=== PATIENT | male | born 1990 | race Caucasian/White ===

== ENCOUNTER 2021-05-04 09:46 | Emergency (ER) | payer MEDICARE, MEDICAID, SELFPAY ==
[2021-05-04] VITALS (8 sets, daily range): BP systolic 90–116; BP diastolic 58–80; PULSE 80–116; RESP 12–20; TEMP 36.6; O2SAT 97–100
--- NOTE | 2021-05-04 10:06 | ECG_ITS ---
Measurements Intervals [place] Rate: 111 P: 62 UT: 153 QRS: 25 QRSD: 102 T: 51 QT: 333 QTc: 453 Interpretive Statements SINUS TACHYCARDIA ABNORMAL RHYTHM ECG NO PREVIOUS ECG AVAILABLE FOR COMPARISON Electronically Signed On 05-04-2021 13:13:05 CDT by Milly Parisi M.D.
[2021-05-04] MEDS: SODIUM CHLORIDE 0.9% IV 1,000 ML 999 ML IV CONT ×2 (10:08→16:08)
--- NOTE | 2021-05-04 10:12 | ED.OVERDOSE ---
HPI - Overdose General Chief Complaint: Overdose Stated Complaint: altered/?under the influence Time Seen by Provider: 05/04/21 09:58 History of Present Illness HPI Narrative: 30-year-old male presents the emergency room via EMS unresponsive. Per EMS, patient was found in the lobby of a hotel unresponsive. EMS established an IV and gave patient 0.4 mg of Narcan, patient was able to wake up and verbalized that he took an unknown amount of Xanax. Related Data Allergies Allergy/AdvReac Type Severity Reaction Status Date / Time Penicillins Allergy Unknown Verified 05/04/21 10:18 Review of Systems Review of Systems: CONSTITUTIONAL: Denies fever, chills, or sweats. EYES: Denies visual changes, redness, or discharge. ENT: Denies rhinorrhea, congestion, sore throat, or otalgia. CARDIOVASCULAR: Denies chest pain, palpitations, or edema. RESPIRATORY: Denies cough or dyspnea. GASTROINTESTINAL: Denies abdominal pain, nausea, vomiting, or diarrhea. GENITOURINARY: Denies dysuria or hematuria. SKIN: Denies rash or itching. MUSCULOSKELETAL: Denies back pain, joint pain, or myalgia. NEUROLOGIC: Denies headache, numbness, dizziness, or weakness. PSYCHIATRIC: Denies anxiety or depression. Exam Narrative: GENERAL: Well-appearing, well-nourished, and in no acute distress. HEAD: Normocephalic, atraumatic. EYES: Pupils are pinpoint. ENT: Nares clear, no rhinorrhea or epistaxis. Mucous membranes moist. NECK: Supple. No adenopathy or masses. No carotid bruits or JVD CHEST: Clear to auscultation. Bradypnea. No wheezes rales or rhonchi HEART: Tachycardic and rhythm. No murmur heard. Normal peripheral pulses. ABDOMEN: Soft, nontender, nondistended, normal active bowel sounds. EXTREMITIES: Normal range of motion. No edema. SKIN: Warm, dry, no rash. NEURO: No focal deficits. Somnolent. PSYCH: Normal mood and affect. Course Vital Signs Vital signs: Vital Signs Temperature 36.6 C 05/04/21 09:50 Pulse Rate 116 H 05/04/21 09:50 Respiratory Rate 16 05/04/21 09:50 Blood Pressure 111/66 05/04/21 09:50 Pulse Oximetry 97 05/04/21 09:50 Temperature 36.6 C 05/04/21 09:50 Pulse Rate 84 05/04/21 16:52 Respiratory Rate 16 05/04/21 16:52 Blood Pressure 107/65 05/04/21 16:52 Pulse Oximetry 98 05/04/21 16:52 MDM - Overdose MDM Narrative Medical decision making narrative: 30-year-old male presented to the emergency room via EMS he was found unresponsive in a hotel lobby. Patient was given 0.4 mg of Narcan in route and was able to wake up slightly. UDS showed a positive benzodiazepines and THC. Patient was difficult to arouse, however he remained hemodynamically stable. At approximately 1700, patient was arousable and was able to 6 tell me that he took 2 mg of Ativan and smoked a bunch of pot. Patient is requesting to go home. Patient is alert and oriented x3 patient is ambulatory in the emergency room answering questions appropriately. Patient states he has family on the way to provide him transportation. Medical Records Attestation: I reviewed the patient's medical records. Lab Data Attestation: I reviewed the patient's lab results. Result diagrams: 05/04/21 10:08 05/04/21 10:08 Labs: Lab Results 05/04/21 05/04/21 05/04/21 Range/Units 10:08 10:08 10:08 WBC 5.8 (4.5-10.0) K/mm3 RBC 4.41 L (4.6-6.20) M/mm3 Hgb 12.5 L (14.0-18.0) g/dL Hct 38.3 L (42.0-52.0) % MCV 86.8 (80-100) fl MCH 28.3 (26-34) pg MCHC 32.6 (32-36) g/dl RDW 13.8 (11.5-14.5) % Plt Count 252 (150-375) k/mm3 MPV 10.4 (7.4-10.4) fl Immature Gran % (Auto) 0.3 (0-0.5) % Neut % (Auto) 48.6 (45.5-73.1) % Lymph % (Auto) 36.7 (18.3-44.2) % [place] % (Auto) 10.5 H (2.6-8.5) % Eos % (Auto) 3.4 (0-4.4) % Baso % (Auto) 0.5 (0.2-1.2) % Lymph # (Auto) 2.14 (0.9-3.2) K/mm3 [place] # (Auto) 0.6 (0.1-0.6) K/mm3 Eos # (Auto) 0.2 (0-0.3) K/m
[2021-05-04 10:17] LABS: Basophils Percent Auto 0.5 % (0.2-1.2); Eosinophils Absolute Auto 0.2 K/mm3 (0-0.3); Eosinophils Percent Auto 3.4 % (0-4.4); Hematocrit 38.3 % (42.0-52.0); Hemoglobin 12.5 g/dL (14.0-18.0); Immature Granulocyte Absolute 0.02 K/mm3 (0.00-0.031); Immature Granulocyte Percent A 0.3 % (0-0.5); Lymphocytes Absolute Auto 2.14 K/mm3 (0.9-3.2); Lymphocytes Percent Auto 36.7 % (18.3-44.2); Mean Corpuscular HGB Conc 32.6 g/dl (32-36); Mean Corpuscular Hemoglobin 28.3 pg (26-34); Mean Corpuscular Volume 86.8 fl (80-100); Mean Platelet Volume 10.4 fl (7.4-10.4); Monocytes Absolute Auto 0.6 K/mm3 (0.1-0.6); Monocytes Percent Auto 10.5 % (2.6-8.5); Neutrophils Absolute Auto 2.8 K/mm3 (1.3-6.7); Neutrophils Percent Auto 48.6 % (45.5-73.1); Platelet Count Result 252 k/mm3 (150-375); Red Blood Count 4.41 M/mm3 (4.6-6.20); Red Cell Distribution Width 13.8 % (11.5-14.5); White Blood Count 5.8 K/mm3 (4.5-10.0)
--- NOTE | 2021-05-04 10:17 | PC.NURSE ---
pt arrived with $4600 in wallet. Jaun OROZCO Charge and Viki and myself counted the money and jaun placed in charge safe.
[2021-05-04] MEDS: NALOXONE HCL 0.4 MG/ML VIAL IV PUSH (10:19)
[2021-05-04 10:27] LABS: Add Urine Microscopic? YES; Appearance Urine Clear (Clear); Bilirubin Urine Negative (Negative); Blood Urine 2+ (Negative); Color Urine Straw (Yellow); Glucose Urine UA Negative (Negative); Ketones Urine Negative (Negative); Leukocyte Esterase Ur Negative LEU/UL (Negative); Nitrate Urine Negative (Negative); Protein Urine Negative (Negative); RBC Urine 0-2 /hpf (0-2); Urobilinogen Urine Negative mg/dL (<2.0); WBC Urine 0-3 /hpf
[2021-05-04 10:28] LABS: Specific Grav Ur 1.003 (1.001-1.035)
[2021-05-04 10:31] LABS: Amphetamine Screen Urine Negative (Negative); Barbiturate Screen Urine Negative (Negative); Benzodiazepines Screen Urine Positive (Negative); Cannabinoid Screen Urine Positive (Negative); Cocaine Screen Urine Negative (Negative); Methadone Screen Urine Negative (Negative); Opiate Screen Urine Negative (Negative); Phencyclidine Screen Urine Negative (Negative)
[2021-05-04 10:33] LABS: Acetaminophen < 10 ug/mL (10-30); Ethanol < 10 mg/dL (<10); Salicylate < 1.0 mg/dL (2-20)
[2021-05-04 11:26] LABS: Alanine Aminotransferase 34 U/L (4-50); Alkaline Phosphatase 76 U/L (38-126); Anion Gap 8 mmol/L (8-16); Aspartate Amino Transferase 40 U/L (17-59); Bilirubin,Total 0.2 mg/dL (0.2-1.3); Blood Urea Nitrogen 8 mg/dL (9-20); Calcium 8.3 mg/dL (8.4-10.2); Carbon Dioxide 25 mmol/L (22-30); Chloride 104 mmol/L (98-107); Estimated CRCL calculation 112 ml/min; Estimated Glomerular Filt Rate > 60; Glucose 185 mg/dL (65-110); Sodium 137 mmol/L (137-145)
--- NOTE | 2021-05-04 14:27 | PC.NURSE ---
pt got out of bed walking around. was cooperative getting back into bed
== END 2021-05-04 17:48 | disposition home or self-care (01) ==
PROVIDERS: Emergency Provider Nurse Practitioner Family
DX: T50.901A Poisoning by unspecified drugs, medicaments and biological substances, accidental (unintentional), initial encounter (principal)
CPT/HCPCS: 36415; 80053; 80307; 81001; 85025; 93005; 96361; 96374; 99284; J2310; J7030